=== PATIENT | male | born 1945 | race Caucasian/White ===

== ENCOUNTER 2016-09-18 14:13 | Inpatient (IN) | payer MEDICARE, OTHER ==
[~2016-09-18] VITALS: Ht 190.5 cm; Wt 64.2 kg
[2016-09-18] VITALS (10 sets, daily range): BP systolic 57–113; BP diastolic 34–65; PULSE 80–81; RESP 15–26; O2SAT 94–100
[~2016-09-18 14:13] MED LIST: ATOR20TA65 PO; CALC667C9 PO; CARV3.122 PO; CETI10CA PO; CHOL10008 PO; HYPR15DR9 BOTH_EYES; [UNRECOGNIZED DRUG - CODE] PO; [UNRECOGNIZED DRUG - CODE] TP
--- NOTE | 2016-09-18 14:30 | ED.REPORT ---
HPI-Dyspnea / Wheezing Date of Service Sep 18, 2016 ED Provider: Garrick Tyson Patient is a 70 year old male on Warfarin who presents to the ED via EMS from dialysis for a low O2 stat and low blood sugar. He complains of pain all over. He was recently treated for pneumonia. He resides at [facility]. He visits wound care for nonhealing wounds. Nursing Notes Stated Complaint: CONFUSION Chief Complaint: Respiratory Complaints Nursing Notes Reviewed: Yes Allergies: Coded Allergies: erythromycin base (Verified Allergy, Unknown, 09/18/16) ibuprofen (Verified Allergy, Unknown, 09/18/16) verapamil (Verified Allergy, Unknown, 09/18/16) Scheduled Atorvastatin Calcium (Atorvastatin Calcium) 20 Mg Tablet 20 MG PO DAILY Calcium Acetate (Calcium Acetate) 667 Mg Capsule 2 CAPSULE PO TIDWM Carvedilol (Carvedilol) 3.125 Mg Tablet 3.125 MG PO BID only take katy dose on tuesday,,tuesday after diaylsis Cetirizine HCl (Zyrtec) 10 Mg Capsule 10 MG PO DAILY Cholecalciferol (Vitamin D3) (Vitamin D3) 1,000 Unit Tab.chew 1,000 UNIT PO DAILY Scheduled PRN Ammonium Lactate (Marleny-Hydrolac) 240 Gm Lotion 1 APPLIC TP DAILY PRN PRN dry skin Guaifenesin/Dextromethorphan (Tussin Dm Syrup) 240 Ml Syrup 5 ML PO Q4H PRN PRN For Cough Hypromellose (Artificial Tears Drops) 15 Ml Bottle 1-2 DROP BOTH_EYES DAILY PRN PRN dry eyes General Time Seen by MD: 14:29 Chief Complaint Other (Trouble breathing ) Hx Obtained From: EMS Arrived By: Ambulance Past Medical History Past Medical History Notes: DRN with limited interventions OK with bipap and cpap Past Medical History atrial fibrillation-on anticoagulation therapy end stage renal disease-on dialysis insomnia Reports: COPD, Hypertension Past Surgical History colostomy right upper chest port Reports: Pacemaker insertion Smoking History Current Every Day Smoker Social History Alcohol Use: "Social" Drug Use: Denies drug use Ambulatory Status Independent Review of Systems Unable to Obtain ROS Patient condition Physical Exam Initial Vital Signs Vital Signs (First) Date Time Temp Pulse Resp B/P Pulse Ox O2 Delivery O2 Flow Rate FiO2 09/18/16 14:27 35.8 80 20 113/47 98 Nasal Cannula 2 09/18/16 15:59 75 Initial VS: Reviewed Head / Eyes: Atraumatic, Normocephalic Abdomen / GI: Soft, Non-tender General/Constitutional: Awake Appearance / Presentation: Positive: Frail Neck: Atraumatic Rales / Rhonchi: Positive: Rales diffuse, Rhonchi diffuse Cardiovascular: Heart rate NL Lower Extremity / Pelvis / MS: No deformity Bilateral edema Mental Status: Positive: Confused, Responds to verbal stim Upper Extremity / MS: No deformity Bilateral edema with weeping from L arm Interpretation & Diagnostics Lab Results Interpretation Result Diagram: 09/18/16 1600 09/18/16 1600 Test 09/18/16 16:00 White Blood Count 28.4th/mm3 (3.8-10.1) Red Blood Count 4.61mil/mm3 (4.40-5.80) Hemoglobin 13.3g/dL (13.8-17.2) Hematocrit 43.1% (41.0-50.0) Mean Corpuscular Volume 93.5fL (81-100) Mean Corpuscular Hemoglobin 28.9pg (27.0-35.0) Mean Corpuscular Hemoglobin Concent 30.9% (32.0-37.0) Red Cell Distribution Width 17.9% (12.3-15.4) Platelet Count 244bil/L (150-400) Neutrophils (%) (Auto) 92.1% (40-74) Lymphocytes (%) (Auto) 2.5% (14-46) Monocytes (%) (Auto) 4.5% (4-12) Eosinophils (%) (Auto) 0% (0-5) Basophils (%) (Auto) 0.2% (0-3) Prothrombin Time 53.8sec (8.1-12.5) Prothromb Time International Ratio 4.87ratio Sodium Level 135mEq/L (134-144) Potassium Level 5.0mEq/L (3.5-5.2) Chloride Level 95mEq/L (97-108) Carbon Dioxide Level 25mmol/L (18-29) Blood Urea Nitrogen 24mg/dL (8-27) Creatinine 2.97mg/dL (0.76-1.27) Estimat Glomerular Filtration Rate 22mL/min (>59) Glucose Level 93mg/dL (60-99) Lactic Acid Level 1.6mmol/L (0.4-2.0) Calcium Level 8.2mg/dL (8.5-10.1) Magnesium Level 1.9mg/dL (1.6-2.6) Total Bilirubin 0.5mg/dL (0.0-1.2) Aspartate Amino Transf (AST/SGOT) 18U/L (0-50) Alanine Aminotransferase (ALT/SGPT) 8U/L (0-44) Alkaline Phosphatase 117U/L (25-160) Troponin T ug/L (0.0-0.011) Total Protein 6.2g/dL (6.4-8.4) Albumin 2.7g/dL (3.4-5.0) Procalcitonin 0.66ng/mL (0.00-0.08) Lab Results Interpretation: BRAIN CT: IMPRESSION: 1. No acute intracranial findings. 2. Moderate to severe findings likely associated with microvascular ischemic changes. Dictated by: Lia Meyers M.D. on 09/18/2016 at 15:56 Approved by: Lia Meyers M.D. on 09/18/2016 at 15:57 ECG Interpretation ECG Interpretation: afib/flutter and ventricular-paced rhythm rate 80 Time: 15:39 Interpreted by: ED physician ABG Interpretation ABG Interpretation: pH 7.167 pCO2 84 pO2 72.8 cHCO3- 29.1 cBase -1.6 Exam Performed by: Allied health pract Exam Interpreted by: ED physician X-Ray Chest Interpretation Chest Xray Interpretation: IMPRESSION: 1. Bilateral patchy pulmonary opacities suspicious for evolving ARDS, pulmonary edema, or multifocal pneumonia. 2. Bilateral pleural effusions versus pleural scarring. 3. Cardiomegaly. Dictated by: Lia Meyers M.D. on 09/18/2016 at 15:26 Approved by: Lia Meyers M.D. on 09/18/2016 at 15:27 View: Portable, 1 view Interpretation / Wet Read by: Interpret - Radiologist Procedures Central Line Placement Time: 16:50 Procedure Performed by: ED physician Consent / Setup / Site Prep: Informed consent provided, Consent from patient , Time-out performed, Oxygen administered, Pulse oximeter applied, application systems architect applied, Hand hygiene observed Skin Preparation Agent: Hibiclens - Chlorhexidine Local Anesthesia: Lidocaine 1% Side / Location / Ultrasound: Internal jugular right, Ultrasound assisted Catheter / Lumen / Technique: Triple lumen, Good blood return, Secured w catheter device Central Line Tip Location: Cath tip good position in the SVC Post-Procedure / Complications: Dressing placed, Condition improved, Tolerated procedure well, Patient stable Re-Eval/Medical Decision Med Decision/Clinical Course Hypercapnic respiratory failure likely due to pneumonia and pulmonary edema, elevated white blood cell count concerning for healthcare associated pneumonia, BiPAP started early in the ER. Central line placed for IV access. Re-Evaluation/Progress #1: Time of Eval: 16:18 Re-Evaluation/Progress Note: Rechecked patient who is on bipap. He is arousable but cannot reliably answer any questions. Informed of need for admission. Re-Evaluation/Progress #2: Time of Eval: 17:26 Re-Evaluation/Progress Note: Rechecked patient. He has improved and is stable for admission. Consultation : Referral / Consult Name: Mackenzie Ritchie MD Consulted With: Hospitalist Call Returned at: 16:02 Crystal Attacher: Will see patient, Agrees with eval, Agrees with plan, Accepts admit Note: Discussed patient's case. Accepts admit. Counseled Regarding: Diagnosis, Lab results, Need for admission Discharge & Departure Impression: Primary Impression: Hypercapnic respiratory failure Additional Impressions: Healthcare-associated pneumonia End stage renal disease Disposition: ADMITTED TO HOSPITAL Referrals: [facility] ([facility] Crit Care Except Billable Proc Time Spent: 75-104 minutes Services Performed: Patient management by me, Time spent at bedside, Reviewing test results, Reviewing imaging, Discussing patient care, Documentation in record Critical Care Notes: See MDM Scribe Attestation Portions of this note were transcribed by Ingrid Villa. I, Dr. Tyson personally performed the history, physical exam and medical decision-making; I reviewed and confirmed the accuracy of the information in the transcribed note. Signed by: Ingrid Villa 09/18/16, [id number] copies to: [facility] Garrick Tyson DO Sep 18, 2016 14:30 INGRID VILLA Sep 18, 2016 15:35
--- NOTE | 2016-09-18 15:23 | ABG ---
DateTimeAnalyzed 15:18:00 -_ pH ____7.167 - 7.350 7.450 pCO2 ___83.9__ -mmHg 35.0 45.0 pO2 ___72.8__ -mmHg 69.0 116 HCO3- ___29.1__ -mmol/L 22.0 26.0 ABE ___-1.6__ -mmol/L -2.0 2.0 tHb ___13.0__ -g/dL O2Hb ___89.2__ -% COHb ____1.2__ -% MetHb ____1.3__ -% sO2 ___91.5__ -% 25.0 FIO2 ___50.0__ -% Drawn By JJ - Date/Time Notified____ 15:23:00 -_ Liter_Flow ____6.0__ -L/min Oxygen Device 1 __OXYMASK - Notified By JJ - Notified Whom DR OKELLEY - B 770 -mmHg tO2 ___16.3__ -Vol% Martin test _Positive -
--- NOTE | 2016-09-18 15:28 | DRSVH ---
PROCEDURE: X-RAY CHEST ONE VIEW, PORTABLE ([id number]) INDICATIONS: resp failure TECHNIQUE: One view of the chest was acquired. COMPARISON: [facility], CR, XR CHEST 1VW (PORTABLE), 07/08/2015, 13:11. FINDINGS: Surgical changes and devices: Cardiac defibrillator and tunneled hemodialysis catheter are unchanged. Lungs and pleura: There are diffuse patchy pulmonary opacities most confluent at the lung bases bilat erally. There is a right pleural effusion or pleural scar. There is likely a small left pleural effus ion. Mediastinum: The heart is enlarged. Bones and chest wall: No suspicious bony lesions. Overlying soft tissues appear unremarkable. IMPRESSION: 1. Bilateral patchy pulmonary opacities suspicious for evolving ARDS, pulmonary edema, or multifocal pneumonia. 2. Bilateral pleural effusions versus pleural scarring. 3. Cardiomegaly. Dictated by: Lia Meyers M.D. on 09/18/2016 at 15:26 Approved by: Lia Meyers M.D. on 09/18/2016 at 15:27
[2016-09-18] MEDS ORDERED: levoFLOXacin Inj 750 MG in IV Premix 1 EACH IV ONE (15:50)
--- NOTE | 2016-09-18 15:59 | DRSVH ---
PROCEDURE: CT BRAIN WITHOUT CONTRAST ([id number]) INDICATIONS: AMS TECHNIQUE: Noncontrast 4.5 mm thick angled axial sections acquired from the foramen magnum to the vertex, with c oronal reformats. COMPARISON: None. FINDINGS: Image quality: Excellent. CSF spaces: Basal cisterns are patent. No extra-axial fluid collections. The ventricles are symmet fatuma in size and shape. Brain: No intracranial bleeds or masses. There is moderate cerebral volume loss for age, with resul tant ventricular and sulcal prominence. There are extensive periventricular and deep white matter ch ronic small vessel ischemic changes. There is intracranial internal carotid artery atherosclerosis. Skull and face: Calvarium and visualized facial bones appear intact, without suspicious lesions. Sinuses: Visualized sinuses and mastoids are clear. IMPRESSION: 1. No acute intracranial findings. 2. Moderate to severe findings likely associated with microvascular ischemic changes. Dictated by: Lia Meyers M.D. on 09/18/2016 at 15:56 Approved by: Lia Meyers M.D. on 09/18/2016 at 15:57
[2016-09-18] MEDS ORDERED: Vancomycin Inj 1,250 MG in 0.9% Sodium Chloride 250 ML IV ONE (16:00)
--- NOTE | 2016-09-18 16:01 | PCM.CONPHA ---
Subjective Requesting Provider: Garrick Tyson DO Reason for Pharmacy Consult: Vancomycin Dosing Assessment/Plan Assessment/Plan Vancomycin 1.25 Grams IV x 1 ER (20mg/kg x 64K) for empiric therapy. Will follow in hospital if vancomycin is reordered. Patient is on dialysis. Alyson Banerjee [facility] Sep 18, 2016 16:01
[2016-09-18] MEDS ORDERED: 0.9% Sodium Chloride 500 ML IV ONE ×2 (16:10→16:15)
[2016-09-18] MEDS: Piperacillin-Tazo 3.375 Gm Inj 3.375 GM in Dextrose 5% Minibag Plus 50 ML IV ONE ×2 (16:12→16:28)
[2016-09-18 16:14] LABS: BASOPHILS % (AUTO) 0.2 % (0-3); EOSINOPHILS % (AUTO) 0 % (0-5); MONOCYTES % (AUTO) 4.5 % (4-12); Mean Corpuscular Hemoglobin 28.9 pg (27.0-35.0); Mean Corpuscular Volume 93.5 fL (81-100); NEUTROPHILS % (AUTO) 92.1 % (40-74); Platelet Count 244 bil/L (150-400)
[2016-09-18 16:49] LABS: INR 4.87 ratio
[2016-09-18 17:14] LABS: Magnesium 1.9 mg/dL (1.6-2.6)
[2016-09-18] MEDS ORDERED: Ondansetron 2 mg/mL 2 mL Inj IVPUSH PRN (17:25)
[2016-09-18] MEDS ORDERED: Alum-Mag Hydrox-Simeth 30 mL Suspension PO PRN (17:25)
[2016-09-18] MEDS ORDERED: 0.9% Sodium Chloride 1,000 ML IV SCH (17:41)
[2016-09-18] MEDS ORDERED: Acetaminophen IV 1,000 MG in IV Premix 1 EACH IV PRN (17:45)
[2016-09-18] MEDS ORDERED: Vancomycin Dose per Pharmacist XX SCH (17:45)
[2016-09-18] MEDS ORDERED: Albuterol 2.5 mg/3 mL Inhalation Solution NEB PRN (17:45)
--- NOTE | 2016-09-18 17:47 | DRSVH ---
PROCEDURE: X-RAY CHEST ONE VIEW, PORTABLE ([id number]) INDICATIONS: central line placement TECHNIQUE: One view of the chest was acquired. COMPARISON: [facility], CR, XR CHEST 1VW (PORTABLE), 09/18/2016, 15:00. [facility], CR, XR CHEST 1VW (PORTABLE), 07/08/2015, 13:11. FINDINGS: Surgical changes and devices: There is a new right central venous catheter the tip of which is projec leena over the cavoatrial junction. Left tunneled hemodialysis catheter and defibrillator are unchanged . Lungs and pleura: Patchy pulmonary opacities and pleural effusions are unchanged when compared with t he study from earlier today. No pneumothorax. Mediastinum: Heart is enlarged, as before. There are multiple calcified mediastinal and hilar lymph n odes suggesting prior granulomatous disease. Bones and chest wall: No suspicious bony lesions. Overlying soft tissues appear unremarkable. IMPRESSION: Central line placement as above. Otherwise stable chest. Dictated by: Lia Meyers M.D. on 09/18/2016 at 17:41 Approved by: Lia Meyers M.D. on 09/18/2016 at 17:45
--- NOTE | 2016-09-18 18:01 | NUR ---
Transported to 2020 from ED without incident.
--- NOTE | 2016-09-18 18:06 | NUR ---
Admitted to CCU at approx 1800hrs Pt was admitted to CCU and was awake and talking on admit. We turned him to get him off extra linens and then sat him up to help his breathing and put the bi pap on him and he became unresponsive and went very pale. BP was 57 sys and he was 100% paced. sats were 94%. We layed him flat, opened fluids and pt became responsive again and color returned. next BP 3 mins later was 108 sys. Pt woke up and was trying to talk. bi pap started, IVF continuing. is being paged. hank was placed in the ER but no UOP at this time. Pt has a CVL in his right IJ.
[2016-09-18] MEDS ORDERED: LISI2.5T PO (18:40)
[2016-09-18] MEDS ORDERED: RANI150T11 PO (18:40)
--- NOTE | 2016-09-18 18:43 | PCM.HPMED ---
Subjective Date of Service Sep 18, 2016 Primary Provider: Admitting Physician: Mackenzie iRtchie MD Primary Care Physician: [facility] Attending Physician: Mackenzie Ritchie MD Admit Status: From the Emergency Department, Full Admit, Critical Care Chief Complaint: Increasing confusion and shortness of breath History of Present Illness: This is a 70-year-old male who looks much older than his stated age who presented to the emergency room from dialysis for low oxygen saturation and being dyspneic. Unable to get a history from him. He is a resident of [facility] [place]. Wound care center for which ulcers on his lower extremities and per nurse also has a sacral decubitus ulcer. His evaluation here included an ABG which showed a pH of 7.167 PCO2 of 84 CO2 of 72.8 bicarbonate 29.1 and I believe this was performed on 2 L nasal cannula agents temperature was afebrile when he arrived heart rate was 80 respiratory rate was 20 blood pressure 113/47. Per ER M.D. patient did complete session of dialysis today. Again patient is very poor historian and cannot get any other details. Review of Systems: Unobtainable due to patient's mental status Allergies Coded Allergies: erythromycin base (Verified Allergy, Unknown, 09/18/16) ibuprofen (Verified Allergy, Unknown, 09/18/16) verapamil (Verified Allergy, Unknown, 09/18/16) Home Medications Scheduled Atorvastatin Calcium (Atorvastatin Calcium) 20 Mg Tablet 20 MG PO DAILY Calcium Acetate (Calcium Acetate) 667 Mg Capsule 2 CAPSULE PO TIDWM Carvedilol (Carvedilol) 3.125 Mg Tablet 3.125 MG PO BID only take katy dose on tuesday,,tuesday after diaylsis Cetirizine HCl (Zyrtec) 10 Mg Capsule 10 MG PO DAILY Cholecalciferol (Vitamin D3) (Vitamin D3) 1,000 Unit Tab.chew 1,000 UNIT PO DAILY Scheduled PRN Ammonium Lactate (Marleny-Hydrolac) 240 Gm Lotion 1 APPLIC TP DAILY PRN PRN dry skin Guaifenesin/Dextromethorphan (Tussin Dm Syrup) 240 Ml Syrup 5 ML PO Q4H PRN PRN For Cough Hypromellose (Artificial Tears Drops) 15 Ml Bottle 1-2 DROP BOTH_EYES DAILY PRN PRN dry eyes PMH Past Medical History Notes: DRN with limited interventions OK with bipap and cpap Past Medical History atrial fibrillation-on anticoagulation therapy end stage renal disease-on dialysis insomnia Reports: COPD, Hypertension Past Surgical History colostomy right upper chest port Reports: Pacemaker insertion Family History Unobtainable Social History Hx Alcohol Use: No Smoking Status: Current Every Day Smoker, Smoker Current Status UNK Living Arrangement: Jail Facility Exam Vital Signs Vital Sign - Last Date Time Temp Pulse Resp B/P Pulse Ox O2 Delivery O2 Flow Rate FiO2 09/18/16 18:14 36.5 80 22 112/55 99 BiPAP 0.00 09/18/16 18:08 65 Exam Constitutional: Elderly male who looks much older than his stated age who is disheveled and very confused and lethargic Head: Normocephalic atraumatic Eyes: PERRLA DC EOMI Mouth: No lesions Neck crest disorder for the bruits Chest reveals diffuse rhonchi Cor : regular rate and rhythm S1-S2 Abdomen: Soft nontender bowel sounds present Extremity: Lower extremities are wrapped with dressings Skin: No rashes noted Psych: Unable to assess Neuro he is alert oriented 0, moves all extremities equally Lab and Diagnostics Labs Laboratory Tests 72 Hours Test 09/18/16 16:00 White Blood Count 28.4th/mm3 (3.8-10.1) Red Blood Count 4.61mil/mm3 (4.40-5.80) Hemoglobin 13.3g/dL (13.8-17.2) Hematocrit 43.1% (41.0-50.0) Mean Corpuscular Volume 93.5fL (81-100) Mean Corpuscular Hemoglobin 28.9pg (27.0-35.0) Mean Corpuscular Hemoglobin Concent 30.9% (32.0-37.0) Red Cell Distribution Width 17.9% (12.3-15.4) Platelet Count 244bil/L (150-400) Neutrophils (%) (Auto) 92.1% (40-74) Lymphocytes (%) (Auto) 2.5% (14-46) Monocytes (%) (Auto) 4.5% (4-12) Eosinophils (%) (Auto) 0% (0-5) Basophils (%) (Auto) 0.2% (0-3) Prothrombin Time 53.8sec (8.1-12.5) Prothromb Time International Ratio 4.87ratio Sodium Level 135mEq/L (134-144) Potassium Level 5.0mEq/L (3.5-5.2) Chloride Level 95mEq/L (97-108) Carbon Dioxide Level 25mmol/L (18-29) Blood Urea Nitrogen 24mg/dL (8-27) Creatinine 2.97mg/dL (0.76-1.27) Estimat Glomerular Filtration Rate 22mL/min (>59) Glucose Level 93mg/dL (60-99) Lactic Acid Level 1.6mmol/L (0.4-2.0) Calcium Level 8.2mg/dL (8.5-10.1) Magnesium Level 1.9mg/dL (1.6-2.6) Total Bilirubin 0.5mg/dL (0.0-1.2) Aspartate Amino Transf (AST/SGOT) 18U/L (0-50) Alanine Aminotransferase (ALT/SGPT) 8U/L (0-44) Alkaline Phosphatase 117U/L (25-160) Troponin T ug/L (0.0-0.011) Pro-B-Type Natriuretic Peptide 751581pk/mL (0-376) Total Protein 6.2g/dL (6.4-8.4) Albumin 2.7g/dL (3.4-5.0) Procalcitonin 0.66ng/mL (0.00-0.08) Result Diagram: 09/18/16 1600 09/18/16 1600 X-Rays, CTs and MRIs PROCEDURE: CT BRAIN WITHOUT CONTRAST ([id number]) INDICATIONS: AMS TECHNIQUE: Noncontrast 4.5 mm thick angled axial sections acquired from the foramen magnum to the vertex, with coronal reformats. COMPARISON: None. FINDINGS: Image quality: Excellent. CSF spaces: Basal cisterns are patent. No extra-axial fluid collections. The ventricles are symmetric in size and shape. Brain: No intracranial bleeds or masses. There is moderate cerebral volume loss for age, with resultant ventricular and sulcal prominence. There are extensive periventricular and deep white matter chronic small vessel ischemic changes. There is intracranial internal carotid artery atherosclerosis. Skull and face: Calvarium and visualized facial bones appear intact, without suspicious lesions. Sinuses: Visualized sinuses and mastoids are clear. IMPRESSION: 1. No acute intracranial findings. 2. Moderate to severe findings likely associated with microvascular ischemic changes. Dictated by: Lia Meyers M.D. on 09/18/2016 at 15:56 Approved by: Lia Meyers M.D. on 09/18/2016 at 15:57 PROCEDURE: X-RAY CHEST ONE VIEW, PORTABLE ([id number]) INDICATIONS: central line placement TECHNIQUE: One view of the chest was acquired. COMPARISON: [facility], CR, XR CHEST 1VW (PORTABLE), 09/18/2016, 15: 00. [facility], CR, XR CHEST 1VW (PORTABLE), 07/08/2015, 13:11. FINDINGS: Surgical changes and devices: There is a new right central venous catheter the tip of which is projected over the cavoatrial junction. Left tunneled hemodialysis catheter and defibrillator are unchanged. Lungs and pleura: Patchy pulmonary opacities and pleural effusions are unchanged when compared with the study from earlier today. No pneumothorax. Mediastinum: Heart is enlarged, as before. There are multiple calcified mediastinal and hilar lymph nodes suggesting prior granulomatous disease. Bones and chest wall: No suspicious bony lesions. Overlying soft tissues appear unremarkable. IMPRESSION: Central line placement as above. Otherwise stable chest. Dictated by: Lia Meyers M.D. on 09/18/2016 at 17:41 Approved by: Lia Meyers M.D. on 09/18/2016 at 17:45 PROCEDURE: X-RAY CHEST ONE VIEW, PORTABLE ([id number]) INDICATIONS: resp failure TECHNIQUE: One view of the chest was acquired. COMPARISON: [facility], CR, XR CHEST 1VW (PORTABLE), 07/08/2015, 13 :11. FINDINGS: Surgical changes and devices: Cardiac defibrillator and tunneled hemodialysis catheter are unchanged. Lungs and pleura: There are diffuse patchy pulmonary opacities most confluent at the lung bases bilaterally. There is a right pleural effusion or pleural scar. There is likely a small left pleural effusion. Mediastinum: The heart is enlarged. Bones and chest wall: No suspicious bony lesions. Overlying soft tissues appear unremarkable. IMPRESSION: 1. Bilateral patchy pulmonary opacities suspicious for evolving ARDS, pulmonary edema, or multifocal pneumonia. 2. Bilateral pleural effusions versus pleural scarring. 3. Cardiomegaly. 12-lead ECG A flutter waves and is ventricularly paced rhythm Assessment & Plan # Acute respiratory failure with hypoxia and hypercapnia, present on admission Appears to be secondary to pneumonia, given he goes to dialysis and is a resident at longterm facility will treat for healthcare associated pneumonia with IV vancomycin, IV Zosyn, IV Levaquin Check blood cultures 2 Check sputum studies and nasal MRSA screen Run a respiratory PCR screen Because of patient's respiratory status is currently on BiPAP protocol Check ABGs after setting changes and when necessary Patient had poor IV access and intermittent hypotension and central line was placed by ER Mallory # Atrial fibrillation, chronic, present on admission Patient currently is on warfarin therapy will try to continue dosing mats but may need subcutaneous Lovenox instead will reassess in a.m. I did order warfarin per pharmacy dosing Also of note patient was supratherapeutic with an INR of 4.87 # End stage renal disease, chronic, present on admission We will need to notify in a.m. nephrology regarding this patient Patient most likely is due for dialysis on Tuesday as patient was dialyzed today # Possible history of COPD, present on admission Will give nebs albuterol when necessary and DuoNeb's every 4 hours while awake # DVT prophylaxis Patient is on therapeutic warfarin # CODE STATUS Patient has a pulse form that comes with him from [facility] [place] which states DO NOT RESUSCITATE DO NOT INTUBATE limited interventions to include BiPAP Resuscitation Status: DNR/DNI:Do Not Resuscitate/Intubate Limited Interventions: BiPAP, Medications and IV Fluid Time spent 60 minutes Mackenzie Ritchie MD Sep 18, 2016 18:43 Mackenzie Ritchie MD Sep 18, 2016 18:43
[2016-09-18] MEDS ORDERED: FOLI1TAB18 PO (18:45)
[2016-09-18] MEDS ORDERED: NICO1PAT16 TRANSDERM (18:45)
[2016-09-18] MEDS ORDERED: ATRINH INH (18:45)
[2016-09-18] MEDS ORDERED: LEVO50TA6 PO (18:46)
--- NOTE | 2016-09-18 19:02 | PCM.PHAPRO ---
Progress Date of Service: Sep 18, 2016 Increasing confusion and shortness of breath Dx: HAP PMH: PNA, ESRD on dialysis, Afib vancomycin trough goal 15-20 give vancomycin 1.25gm tonight x 1 start vancomycin per levels draw random vancomycin level AM labs on 09/21 dialysis schedule is Jayna Amado Thu per pharmacy Carlos CastroD Carlos Villatoro Sep 18, 2016 19:02
--- NOTE | 2016-09-18 19:22 | PCM.PHAPRO ---
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
[2016-09-18] MEDS ORDERED: Albuterol-Ipratropium 3 mL Inhalation Solution NEB SCH (20:30)
[2016-09-18] MEDS ORDERED: Heparin 5,000 Unit/mL Inj SUBQ SCH (20:30)
[2016-09-18] MEDS ORDERED: Famotidine Inj 20 MG in IV Premix 1 EACH IV SCH (20:30)
--- NOTE | 2016-09-18 20:56 | NUR ---
Patient refusing ABG, explained the importance of the test but patient refused. While charting this patient demanded that bipap be removed. Removed bipap and placed on 4L NC. Patient ripped that off stats dropped to 74% placed on 8L oxymask. I explained the importance and the need for oxygen while he is sick. Patient appears comfortable, STATS 95%. RN informed of above note
[2016-09-18] MEDS ORDERED: Norepinephrine 8,000 mCg/250 mL NS Premix IV ONE (23:28)
--- NOTE | 2016-09-19 01:49 | NUR ---
Respiratory/BP/mentation/: Pt was resting at start of shift was able to arouse but very weak not able to hold attention. Vitals were stable and pt was tolerating Bipap. Around 2000 BP dropped to low 80s and 70s pt was given 500ml bolus of NS and Bp responded well. 2100 pt became agitated with bipap mask and attempted to remove when RT was in with pt. Pt was placed on oxymask at 10L/M tolerating ok does try to remove mask. Spo2 is 95-98% on 10L/M. At 2250 spo2 dropped and pt was breathing shallow with a respiratory rate between 6-10. RT was called to place pt back on Bipap head of bed was lowered due to low BP NS bolus was started with slight improvement in BP weak femoral pulses were palpable. Pt's sister was called and informed of pt's condition and message left on son's voice by charge nurse. Dr Ramsey was paged and orders received to start levophed for low BP. Levophed was started at 1mcg/kg/min with slight improvement in BP. Pt started to have arrhythmias and was not breathing pt went into coarse V-fib and Bipap was removed and Ns stopped along with levophed. Rhythm continued to decline and went into fine V-fine and asystole. No breath sounds or heart tones were heard no pulses felt pt was pronounced at 2350. Dr Ramsey was notified of pt's . [facility] was notified of pt's and was not suitable for organ or tissue donation by [facility] referral #[id number]. [facility] did call back and was give information as requested. [employer] was notified due to with 24hrs of admission and declared no autopsy is needed. Sister was notified of pt's and [facility] in [place] was notified of also. Central line and IVs were removed along with mckinney cath. left subclavian dialysis cath was left in place. Pt was placed in body bag and belongings were gathered and plaved in belongings bag and labed with pt's name. Security was [place] [facility] [place] belongings were sent with pt which included upper dentures, cell phone, ear bud speakers, pants, shirt, socks. several attempts were made to contact son messages were left for him to contact the the nursing research kennel supervisor and the hospital.
[2016-09-19] MEDS ORDERED: Piperacillin-Tazo 3.375 Gm Inj 3.375 GM in Dextrose 5% Minibag Plus 50 ML IV SCH (04:00)
[2016-09-19] MEDS ORDERED: Vancomycin Dose per Pharmacist XX SCH (08:30)
[2016-09-20] MEDS ORDERED: levoFLOXacin Inj 750 MG in IV Premix 1 EACH IV SCH (17:00)
[2016-09-21] MEDS ORDERED: Vancomycin Serum Level XX ONE (05:00)
--- NOTE | 2016-09-24 17:13 | PCM.DC.MEX ---
Discharge Summary Date of Service Sep 24, 2016 Dates of Hospitalization Date of Hospital Admission Sep 18, 2016 at 16:28 Date of Expiration: Sep 18, 2016 Time of Expiration: 23:50 Providers: Admitting Physician: Mackenzie Ritchie MD Primary Care Physician: Jyoti Perry,[facility] Attending Physician: Mackenzie Ritchie MD Diagnosis at Time of 1. Acute cardiac arrest 2. Acute hypoxemic and hypercapnic respiratory failure . Procedures XRay, CTs & MRIs CT BRAIN WITHOUT CONTRAST IMPRESSION: 1. No acute intracranial findings. 2. Moderate to severe findings likely associated with microvascular ischemic changes. Dictated and approved by: Lia Meyers M.D. on 09/18/2016 at 15:56 X-RAY CHEST ONE VIEW, PORTABLE IMPRESSION: Central line placement as above. Otherwise stable chest. Dictated and approved by: Lia Meyers M.D. on 09/18/2016 at 17:41 X-RAY CHEST ONE VIEW, PORTABLE IMPRESSION: 1. Bilateral patchy pulmonary opacities suspicious for evolving ARDS, pulmonary edema, or multifocal pneumonia. 2. Bilateral pleural effusions versus pleural scarring. 3. Cardiomegaly. Dictated and approved by: Lia Meyers M.D. on 09/18/2016 at 15:26 . ECG 12 Lead A flutter waves and is ventricularly paced rhythm Other Diagnostics pH 7.167 pCO2 83.9 pO2 72.8 HCO3 29.1 Date/Time Notified 15:23:00 . Brief History From the H&P performed by Dr. Mackenzie Ritchie on 09/18/2016: This is a 70-year-old male who looks much older than his stated age who presented to the emergency room from dialysis for low oxygen saturation and being dyspneic. Unable to get a history from him. He is a resident of [facility] [place]. Wound care center for which ulcers on his lower extremities and per nurse also has a sacral decubitus ulcer. His evaluation here included an ABG which showed a pH of 7.167 PCO2 of 84 CO2 of 72.8 bicarbonate 29.1 and I believe this was performed on 2 L nasal cannula agents temperature was afebrile when he arrived heart rate was 80 respiratory rate was 20 blood pressure 113/47. Per ER Kaleb. patient did complete session of dialysis today. Again patient is very poor historian and cannot get any other details. . Hospital Course From the nursing note by Marike Birch RN on 09/19/2016: Respiratory/BP/mentation/: Pt was resting at start of shift was able to arouse but very weak not able to hold attention. Vitals were stable and pt was tolerating Bipap. Around 2000 BP dropped to low 80s and 70s pt was given 500ml bolus of NS and Bp responded well. 2100 pt became agitated with bipap mask and attempted to remove when RT was in with pt. Pt was placed on oxymask at 10L/M tolerating ok does try to remove mask. Spo2 is 95-98% on 10L/M. At 2250 spo2 dropped and pt was breathing shallow with a respiratory rate between 6-10. RT was called to place pt back on Bipap head of bed was lowered due to low BP NS bolus was started with slight improvement in BP weak femoral pulses were palpable. Pt's sister was called and informed of pt's condition and message left on son's voice by charge nurse. Dr Ramsey was paged and orders received to start levophed for low BP. Levophed was started at 1mcg/kg/min with slight improvement in BP. Pt started to have arrhythmias and was not breathing pt went into coarse V-fib and Bipap was removed and Ns stopped along with levophed. Rhythm continued to decline and went into fine V-fine and asystole. No breath sounds or heart tones were heard no pulses felt pt was pronounced at 2350. Dr Ramsey was notified of pt' s . [facility] was notified of pt's and was not suitable for organ or tissue donation by [facility] referral #[id number]. [facility] did call back and was give information as requested. Operations And Maintenance Supervisor was notified due to with 24hrs of admission and declared no autopsy is needed. Sister was notified of pt's and [facility] in [place] was notified of also. Central line and IVs were removed along with mckinney cath. left subclavian dialysis cath was left in place. Pt was placed in body bag and belongings were gathered and plaved in belongings bag and labed with pt's name. Security was notified of body needing transported to [facility] [place]. All belongings were sent with pt which included upper dentures, cell phone, ear bud speakers, pants, shirt, socks. several attempts were made to contact son messages were left for him to contact the the nursing printing worker supervisor and the hospital. Exam Test 09/18/16 16:00 White Blood Count 28.4th/mm3 (3.8-10.1) Red Blood Count 4.61mil/mm3 (4.40-5.80) Hemoglobin 13.3g/dL (13.8-17.2) Hematocrit 43.1% (41.0-50.0) Mean Corpuscular Volume 93.5fL (81-100) Mean Corpuscular Hemoglobin 28.9pg (27.0-35.0) Mean Corpuscular Hemoglobin Concent 30.9% (32.0-37.0) Red Cell Distribution Width 17.9% (12.3-15.4) Platelet Count 244bil/L (150-400) Neutrophils (%) (Auto) 92.1% (40-74) Lymphocytes (%) (Auto) 2.5% (14-46) Monocytes (%) (Auto) 4.5% (4-12) Eosinophils (%) (Auto) 0% (0-5) Basophils (%) (Auto) 0.2% (0-3) Prothrombin Time 53.8sec (8.1-12.5) Prothromb Time International Ratio 4.87ratio Sodium Level 135mEq/L (134-144) Potassium Level 5.0mEq/L (3.5-5.2) Chloride Level 95mEq/L (97-108) Carbon Dioxide Level 25mmol/L (18-29) Blood Urea Nitrogen 24mg/dL (8-27) Creatinine 2.97mg/dL (0.76-1.27) Estimat Glomerular Filtration Rate 22mL/min (>59) Glucose Level 93mg/dL (60-99) Lactic Acid Level 1.6mmol/L (0.4-2.0) Calcium Level 8.2mg/dL (8.5-10.1) Magnesium Level 1.9mg/dL (1.6-2.6) Total Bilirubin 0.5mg/dL (0.0-1.2) Aspartate Amino Transf (AST/SGOT) 18U/L (0-50) Alanine Aminotransferase (ALT/SGPT) 8U/L (0-44) Alkaline Phosphatase 117U/L (25-160) Troponin T ug/L (0.0-0.011) Pro-B-Type Natriuretic Peptide 783341sl/mL (0-376) Total Protein 6.2g/dL (6.4-8.4) Albumin 2.7g/dL (3.4-5.0) Procalcitonin 0.66ng/mL (0.00-0.08) Microbiology Results Blood cultures showed no growth after 5 days. . copies to: [facility] Kofi Cardenas MD Sep 24, 2016 17:13
== END 2016-09-18 23:50 | disposition expired | DRG 189 ==
LOC: SED 14:13 → EDBD 14:13 → EDUNIT# 14:13 → CCU 16:28
PROVIDERS: ADMIT Specialist; ATTEND Specialist
PROC: 5A09358 Assistance with Respiratory Ventilation, Less than 24 Consecutive Hours, Intermittent Positive Airway Pressure (ICD-10-PCS; principal; 2016-09-18)
PROC: 05HM33Z Insertion of Infusion Device into Right Internal Jugular Vein, Percutaneous Approach (ICD-10-PCS; 2016-09-18)
PROC: B543ZZA Ultrasonography of Right Jugular Veins, Guidance (ICD-10-PCS; 2016-09-18)
PROC: 4A033R1 Measurement of Arterial Saturation, Peripheral, Percutaneous Approach (ICD-10-PCS; 2016-09-18)
DX: J96.01 Acute respiratory failure with hypoxia (principal); J18.9 Pneumonia, unspecified organism; N18.6 End stage renal disease; Z79.01 Long term (current) use of anticoagulants; Z99.2 Dependence on renal dialysis; F17.210 Nicotine dependence, cigarettes, uncomplicated; Z66 Do not resuscitate; J96.02 Acute respiratory failure with hypercapnia; I48.91 Unspecified atrial fibrillation; J44.9 Chronic obstructive pulmonary disease, unspecified; I46.9 Cardiac arrest, cause unspecified; I49.01 Ventricular fibrillation